=== PATIENT | female | born 1980 | race African-American/Black ===

== ENCOUNTER 2016-03-16 19:07 | Emergency (ER) | payer OTHER ==
[~2016-03-16] VITALS: Ht 160 cm; Wt 80.2 kg
[~2016-03-16 19:07] MED LIST: CLARITIN10 M3 PO; FLEXERIL5 MG PO; FLOVENT DISKUS1 DIS2 IH; INDERAL60 MG PO; MIRALAX255 GM PO; PEPCID20 MG PO; PREDNISONE10 MG PO; SEROQUEL300 MG PO; TEGRETOL200 MG PO; TOPAMAX100 MG PO; TORADOL10 MG PO; VENTOLIN HFA18 GM IH; ZANTAC150 MG PO; ZOFRAN ODT4 MG PO; ZOFRAN8 MG PO
[2016-03-16 20:18] LABS: HEMATOCRIT 39.5 % (36.0-46.0); MCHC 32.9 G/DL (30.0-36.0); MCV 85.1 FL (83-99); MEAN PLAT.VOLUME 9.2 uM^3 (9.5-12.4); PLATELET COUNT 323 K/uL (156-360); RBC DIS.WIDTH-CV 13.5 % (11.8-14.6); RBC DIS.WIDTH-SD 41.6 % (39-53); RED BLOOD COUNT 4.64 M/uL (3.80-5.20); WHITE BLOOD COUNT 6.7 K/uL (4.1-10.2)
[2016-03-16 20:29] LABS: CHLORIDE 103 mEq/L (99-109); POTASSIUM 3.5 mEq/L (3.7-5.4); SODIUM 137 mEq/L (136-147)
[2016-03-16 20:31] LABS: GLUCOSE 114 mg/dL (70-99)
[2016-03-16 20:33] LABS: ANION GAP 8 MEQ/L (2-14); TOTAL BILIRUBIN 0.2 mg/dL (0.0-1.0)
[2016-03-16 20:35] LABS: ALKALINE PHOSPHATASE 81 IU/L (3-129); GFR ESTIMATE (CALCULATED) > 59 mL/min/
[2016-03-16 20:36] LABS: UREA NITROGEN (BUN) 6 mg/dL (9-23)
[2016-03-16 20:45] LABS: QUANTITATIVE HCG < 4.0 MIU/ML
[2016-03-16 21:23] LABS: ADD MIUA? YES; BILIRUBIN NEGATIVE; BLOOD NEGATIVE; COLOR YELLOW ((YELLOW)); GLUCOSE (STRIP) NEGATIVE; KETONES NEGATIVE; LEUKOCYTES MODERATE; NITRITE NEGATIVE; PROTEIN (STRIP) 30; SPECIFIC GRAVITY 1.021 (1.000-1.030)
[2016-03-16 21:33] LABS: BACTERIA 2+; CASTS NONE SEEN /LPF; CRYSTALS NONE SEEN; EPITHELIAL CELLS 3+; MUCUS 1+; RED BLOOD CELLS 0-5 /HPF (0-5); UCUL ADDED? YES; WHITE BLOOD CELLS 20-30 /HPF (0-5)
[2016-03-16] MEDS ORDERED: SUDAFED 12-HOU120 MG PO (21:46)
[2016-03-16] MEDS ORDERED: AUGMENTIN875 MG PO (21:46)
[2016-03-16 22:00] VITALS: BP 118/73
== END 2016-03-16 22:01 | disposition home or self-care (01) ==
LOC: EME 19:07
DX: N12 Tubulo-interstitial nephritis, not specified as acute or chronic (principal); J06.9 Acute upper respiratory infection, unspecified; J45.909 Unspecified asthma, uncomplicated; K21.9 Gastro-esophageal reflux disease without esophagitis; Z87.891 Personal history of nicotine dependence
CPT/HCPCS: 80053; 81003; 84702; 85027; 87086; 94640; 99281; 99283; J1100

== ENCOUNTER 2016-04-11 08:41 | Emergency (ER) | payer OTHER ==
[~2016-04-11] VITALS: Ht 160 cm; Wt 78.6 kg
[~2016-04-11 08:41] MED LIST changes: +AUGMENTIN875 MG PO; +SUDAFED 12-HOU120 MG PO
[2016-04-11 09:38] LABS: INFLUENZA A VIRAL ANTIGEN POSITIVE; INFLUENZA B VIRAL ANTIGEN NEGATIVE
[2016-04-11] MEDS ORDERED: TAMIFLU75 MG PO (10:33)
[2016-04-11 10:58] VITALS: BP 98/72
== END 2016-04-11 10:59 | disposition home or self-care (01) ==
LOC: EME 08:41
PROVIDERS: Emergency Medicine
DX: J10.1 Influenza due to other identified influenza virus with other respiratory manifestations (principal); J45.909 Unspecified asthma, uncomplicated; F17.200 Nicotine dependence, unspecified, uncomplicated
CPT/HCPCS: 87502; 99281; 99283

== ENCOUNTER 2016-05-10 11:01 | Emergency (ER) | payer OTHER ==
[~2016-05-10] VITALS: Ht 160 cm; Wt 81.5 kg
[~2016-05-10 11:01] MED LIST changes: +TAMIFLU75 MG PO
[2016-05-10 11:51] LABS: ADD MIUA? YES; BILIRUBIN NEGATIVE; BLOOD NEGATIVE; COLOR YELLOW ((YELLOW)); GLUCOSE (STRIP) NEGATIVE; KETONES NEGATIVE; LEUKOCYTES TRACE; NITRITE NEGATIVE; PROTEIN (STRIP) NEGATIVE; SPECIFIC GRAVITY 1.013 (1.000-1.030); UROBILINOGEN 0.2 MG/DL (0.2-1.0)
[2016-05-10 11:52] LABS: INTERNAL CONTROL VALID? YES
[2016-05-10 11:53] LABS: HEMATOCRIT 40.7 % (36.0-46.0); MCH 28.5 PG (29.0-34.0); MCHC 33.7 G/DL (30.0-36.0); MCV 84.6 FL (83-99); MEAN PLAT.VOLUME 9.3 uM^3 (9.5-12.4); PLATELET COUNT 346 K/uL (156-360); RBC DIS.WIDTH-CV 13.1 % (11.8-14.6); RBC DIS.WIDTH-SD 40.1 % (39-53); RED BLOOD COUNT 4.81 M/uL (3.80-5.20); WHITE BLOOD COUNT 8.3 K/uL (4.1-10.2)
[2016-05-10 11:54] LABS: BACTERIA RARE /HPF; EPITHELIAL CELLS 2+ /HPF; MUCUS NONE SEEN /LPF; RED BLOOD CELLS 0-5 /HPF (0-5); UCUL ADDED? NO; WHITE BLOOD CELLS 0-5 /HPF (0-5)
[2016-05-10 11:58] LABS: CHLORIDE 105 mEq/L (99-109); POTASSIUM 3.7 mEq/L (3.7-5.4); SODIUM 140 mEq/L (136-147)
[2016-05-10 12:00] LABS: GLUCOSE 94 mg/dL (70-99)
[2016-05-10 12:01] LABS: ANION GAP 10 MEQ/L (2-14)
[2016-05-10 12:02] LABS: TOTAL BILIRUBIN 0.1 mg/dL (0.0-1.0)
[2016-05-10 12:04] LABS: ALKALINE PHOSPHATASE 83 IU/L (3-129); GFR ESTIMATE (CALCULATED) > 59 mL/min/
[2016-05-10 12:05] LABS: UREA NITROGEN (BUN) 8 mg/dL (9-23)
[2016-05-10] MEDS ORDERED: PYRIDIUM100 MG PO (14:37)
[2016-05-10] MEDS ORDERED: MACROBID100 MG PO (14:37)
[2016-05-10 14:48] VITALS: BP 107/71
== END 2016-05-10 14:49 | disposition home or self-care (01) ==
LOC: EME → EDBD 11:01 → EME 11:01
PROVIDERS: Nurse Practitioner Family
DX: N39.0 Urinary tract infection, site not specified (principal); R10.31 Right lower quadrant pain; F17.210 Nicotine dependence, cigarettes, uncomplicated; J45.909 Unspecified asthma, uncomplicated; K21.9 Gastro-esophageal reflux disease without esophagitis
CPT/HCPCS: 76856; 80053; 81003; 84703; 85027; 99281; 99284; J1885

== ENCOUNTER 2016-06-15 21:23 | Emergency (ER) | payer OTHER ==
[~2016-06-15] VITALS: Ht 160 cm; Wt 78.0 kg
[~2016-06-15 21:23] MED LIST changes: +MACROBID100 MG PO; +PYRIDIUM100 MG PO
[2016-06-15] MEDS ORDERED: ZOFRAN4 MG PO (22:18)
[2016-06-15] MEDS ORDERED: AMOXICILLIN500 MG PO (22:18)
[2016-06-15] MEDS ORDERED: PERCOCET 5/31 TABLET PO (22:18)
[2016-06-15] MEDS ORDERED: DIFLUCAN150 MG PO (22:26)
[2016-06-15] MEDS ORDERED: PROMETHAZINE HC25 M1 PO (22:27)
[2016-06-15 22:34] VITALS: BP 109/87
== END 2016-06-15 22:34 | disposition home or self-care (01) ==
LOC: EME 21:23
DX: K02.9 Dental caries, unspecified (principal); K08.89 Other specified disorders of teeth and supporting structures; J45.909 Unspecified asthma, uncomplicated; F17.200 Nicotine dependence, unspecified, uncomplicated
CPT/HCPCS: 99281; 99284

== ENCOUNTER 2016-07-05 03:34 | Emergency (ER) | payer OTHER ==
[~2016-07-05] VITALS: Ht 160 cm; Wt 77.1 kg
[~2016-07-05 03:34] MED LIST changes: +AMOXICILLIN500 MG PO; +DIFLUCAN150 MG PO; +PERCOCET 5/31 TABLET PO; +PROMETHAZINE HC25 M1 PO; +ZOFRAN4 MG PO
[2016-07-05 07:32] LABS: ADD MIUA? YES; BILIRUBIN NEGATIVE; BLOOD NEGATIVE; COLOR AMBER ((YELLOW)); GLUCOSE (STRIP) NEGATIVE; KETONES NEGATIVE; LEUKOCYTES SMALL; NITRITE NEGATIVE; PROTEIN (STRIP) NEGATIVE; UROBILINOGEN 0.2 MG/DL (0.2-1.0)
[2016-07-05 07:44] LABS: BACTERIA RARE /HPF; EPITHELIAL CELLS 1+ /HPF; MUCUS 2+ /LPF; UCUL ADDED? NO
[2016-07-05] MEDS ORDERED: TYLENOL WITH C1 EACH PO (07:50)
[2016-07-05] MEDS ORDERED: AMOXICILLIN250 MG PO (07:50)
[2016-07-05] MEDS ORDERED: AMOXICILLIN500 MG PO (07:52)
[2016-07-05 08:05] VITALS: BP 105/64
== END 2016-07-05 08:06 | disposition home or self-care (01) ==
LOC: EME 03:34
PROVIDERS: Emergency Medicine
DX: K04.7 Periapical abscess without sinus (principal); N39.0 Urinary tract infection, site not specified; Z87.440 Personal history of urinary (tract) infections
CPT/HCPCS: 81003; 99281; 99284

== ENCOUNTER 2016-10-20 20:51 | Emergency (ER) | payer OTHER ==
[~2016-10-20] VITALS: Ht 160 cm; Wt 66.0 kg
[~2016-10-20 20:51] MED LIST changes: +AMOXICILLIN250 MG PO; +TYLENOL WITH C1 EACH PO
[2016-10-20] MEDS ORDERED: ZITHROMAX Z-PA250 MG PO (22:49)
[2016-10-20] MEDS ORDERED: CHERATUSSIN AC473 ML PO (22:49)
[2016-10-20 23:15] VITALS: BP 111/61
== END 2016-10-20 23:46 | disposition home or self-care (01) ==
LOC: EME 20:51
DX: J01.90 Acute sinusitis, unspecified (principal); F17.200 Nicotine dependence, unspecified, uncomplicated; K21.9 Gastro-esophageal reflux disease without esophagitis; J45.909 Unspecified asthma, uncomplicated
CPT/HCPCS: 71020; 94640; 99281; 99284